=== PATIENT | female | born 1980 | race Caucasian/White ===

== ENCOUNTER 2022-06-30 15:08 | Emergency (ER) | payer SELFPAY ==
[~2022-06-30 15:08] MED LIST: BENTYL10 MG PO; LEVOTHYROXINE75 MC1 PO; TRAMADOL HCL50 MG PO; ZOFRAN4 M1 PO
[2022-06-30 17:06] LABS: BASOPHIL 0.5 % (0-2); EOSINOPHIL 0.5 % (0-5); HGB 14.7 g/dl (12.5-16.0); LYMPHOCYTE 23.6 % (15-48); MCH 27.7 pg (25.0-31.0); MCHC 33.4 g/dL (32.0-36.0); MONOCYTE 7.4 % (0-12); MPV 10.1 fL (6.0-9.5); NEUTROPHIL 67.5 % (41-80); NRBC 0; PLT 271 K/uL (150-400); RDW 12.9 % (11.5-14.0); WBC 8.4 K/uL (4.0-10.5)
[2022-06-30 17:09] LABS: ALBUMIN 3.8 g/dL (3.4-5.0); BILIRUBIN - TOTAL 0.6 mg/dL (0.2-1.0); BUN/CREAT RATIO (CALC) 12.5 RATIO; CREATININE 0.8 mg/dL (0.51-0.95); GLOBULIN (CALCULATION) 4.5 g/dL; POTASSIUM 3.6 mmol/L (3.5-5.1); TOTAL PROTEIN 8.3 g/dL (6.4-8.2)
[2022-06-30 17:10] LABS: BILIRUBIN NEGATIVE (NEGATIVE); BLOOD 1+ Ery/uL (NEGATIVE); CLARITY CLEAR (CLEAR); COLOR YELLOW (YELLOW); GLUCOSE (U) NORMAL (NORMAL); LEUKOCYTES NEGATIVE Leu/uL (NEGATIVE); NITRITE NEGATIVE (NEGATIVE); PROTEIN NEGATIVE (NEGATIVE); pH 6.5 (5.0-9.0)
[2022-06-30] MEDS ORDERED: BENTYL10 MG PO (19:34)
[2022-06-30] MEDS ORDERED: ONDANSETRON ODT4 MG PO (19:34)
== END 2022-06-30 19:39 | disposition home or self-care (01) ==
LOC: FER 15:08
PROVIDERS: Nurse Practitioner Family
DX: N20.0 Calculus of kidney (principal); B34.9 Viral infection, unspecified; Z88.5 Allergy status to narcotic agent; Z88.6 Allergy status to analgesic agent; Z91.048 Other nonmedicinal substance allergy status
CPT/HCPCS: 36415; 80053; 81001; 85025; Q9967